=== PATIENT | female | born 1980 ===

== ENCOUNTER → 2020-10-31 | Day surgery (SDC) | payer OTHER ==
[2020-10-27 16:33] VITALS: BMI 29.6
[~2020-10-31] MED LIST: ACETAMINOPHEN INJECTION 100 ML IVPB ONE; DEXAMETHASONE SOD PHOSPHATE 4 MG/1 ML VIAL ONE; KETOROLAC TROMETHAMINE 30 MG/1 ML VIAL IM ONE; KETOROLAC TROMETHAMINE 30 MG/1 ML VIAL ONE; LACTATED RINGERS SOLUTION 1,000 ML IV SCH; MIDAZOLAM HCL 2 MG/2 ML SINGLE DOSE VIAL ONE; ONDANSETRON 4 MG/2 ML VIAL IVPUSH PRN; PROMETHAZINE HCL 25 MG/1 ML VIAL IVPB ONE; PROMETHAZINE HCL 25 MG/1 ML VIAL IVPB PRN; PROMETHAZINE HCL 25 MG/1 ML VIAL ONE; PROPOFOL 20 ML ONE; ceFAZolin SODIUM 1 GM VIAL IVPB ONE; ceFAZolin SODIUM 1 GM VIAL ONE; oxyCODONE HCL 5 MG TABLET ONE; oxyCODONE HCL 5 MG TABLET PO PRN
[2020-10-31 15:17] VITALS: BP 133/81; PULSE 82; TEMP 97.8
== END | disposition home or self-care (01) ==
LOC: JASU-SURG 04:42
PROVIDERS: ATTEND Obstetrics & Gynecology
PROC: 0U5B8ZZ Destruction of Endometrium, Via Natural or Artificial Opening Endoscopic (ICD-10-PCS; principal; 2020-10-31 09:00)
PROC: 0UDB7ZX Extraction of Endometrium, Via Natural or Artificial Opening, Diagnostic (ICD-10-PCS; 2020-10-31 09:00)
DX: N92.0 Excessive and frequent menstruation with regular cycle (principal)
CPT/HCPCS: 84703; 86850; 86900; 86901; 88305-TC; 94760; J0131